=== PATIENT | female | born 1975 | race Caucasian/White ===

== ENCOUNTER 2021-07-14 19:48 | Inpatient (IN) | payer BC ==
[~2021-07-14] VITALS: Ht 160 cm; Wt 97.5 kg
[~2021-07-14 19:48] MED LIST: SYN50 PO
[2021-07-14 19:50] VITALS: BP_SYST 150
[2021-07-14 20:42] LABS: BILIRUBIN,URINE 2+ (NEGATIVE); CLARITY/URINE CLEAR (CLEAR); COLOR,URINE YELLOW (YELLOW); GLUCOSE,URINE NEGATIVE (NEGATIVE); KETONES,URINE NEGATIVE (NEGATIVE); LEUKOCYTE ESTERASE ,URINE NEGATIVE (NEGATIVE); NITRITE, URINE NEGATIVE (NEGATIVE); PROTEIN URINE NEGATIVE (NEGATIVE)
[2021-07-14 20:46] LABS: BLOOD, URINE TRACE (NEGATIVE)
[2021-07-14 20:48] LABS: ANION GAP 7 (5-15); CALCIUM 9.3 mg/dL (8.4-11.0); CHLORIDE 102 mmol/L (98-107); CREATININE 0.89 mg/dL (0.55-1.30); GLUCOSE 109 mg/dL (70-99); POTASSIUM 4.1 mmol/L (3.5-5.1); SODIUM SERUM 135 mmol/L (136-145); UREA NITROGEN, BLOOD 10 mg/dL (8-21)
[2021-07-14 20:49] LABS: GFR AFRICAN AMERICAN 89 mL/min (>90)
[2021-07-14 20:51] LABS: BASOPHILS # (AUTO) 0.1 K/uL (0.0-0.2); BASOPHILS % (AUTO) 0.5 % (0.0-2.0); EOSINOPHILS # (AUTO) 0.1 K/uL (0.0-0.4); EOSINOPHILS % (AUTO) 0.9 % (0.0-4.0); HEMATOCRIT 41.2 % (36-48); HEMOGLOBIN 13.9 g/dL (12.0-16.0); LYMPHOCYTES # (AUTO) 1.1 K/uL (1.0-5.5); LYMPHOCYTES % (AUTO) 9.2 % (20.5-51.5); MEAN CORPUSCULAR HEMOGLOBIN 31 pg (27-31); MEAN CORPUSCULAR HGB CONC 34 % (32-36); MEAN CORPUSCULAR VOLUME 91 fL (79.0-98.0); MONOCYTES # (AUTO) 0.8 K/uL (0.0-1.0); MONOCYTES % (AUTO) 6.7 % (1.7-9.3); NEUTROPHILS # (AUTO) 9.7 K/uL (1.8-7.7); NEUTROPHILS % (AUTO) 82.7 % (40.0-70.0); PLATELET COUNT (AUTO) 354 K/uL (130-430); RED BLOOD CELL COUNT(AUTO) 4.52 MIL/uL (4.2-6.2); RED CELL DISTRIBUTION WIDTH 13.2 % (9.0-15.0); WHITE BLOOD COUNT (AUTO) 11.7 K/uL (4.8-10.8)
[2021-07-14 20:53] LABS: C-REACTIVE PROTEIN QUANT < 0.2 mg/dL (0-0.5)
[2021-07-14 20:57] LABS: ALANINE AMINOTRANSFERASE 617 U/L (12-78); AMYLASE 648 U/L (0-100); ASPARTATE AMINOTRANSFERASE 591 U/L (10-37); TOTAL BILIRUBIN 3.5 mg/dL (0.0-1.0)
[2021-07-14 21:05] LABS: LIPASE 10836 U/L (73-393)
[2021-07-14 21:17] LABS: BACTERIA,URINE FEW /HPF (None Seen); WBC,URINE 0-3 /HPF (0-3)
[2021-07-14] MEDS ORDERED: KETOROLAC TROMETHAMINE 60 MG/2 ML VIAL IM ONE (21:30)
[2021-07-14] MEDS: NACL 0.9% 1,000 ML IV SCH (22:00)
[2021-07-14] MEDS: PIPERACILLIN/TAZO 3.375/DEX-IS 50 ML IV SCH (22:00)
[2021-07-14] MEDS ORDERED: MORPHINE 4 MG INJ. 4 MG/ML VIAL IVP ONE (22:15)
[2021-07-14] MEDS ORDERED: ONDANSETRON HCL 4 MG/2 ML VIAL IVP ONE (22:15)
[2021-07-14] MEDS ORDERED: PIPERACILLIN/TAZOBACTAM 3.375 GM/VIAL (ZOSYN) IV ONE (22:52)
[2021-07-15 00:40] VITALS: BP_SYST 134
[2021-07-15] MEDS ORDERED: PIPERACILLIN/TAZOBACTAM 3.375 GM/VIAL (ZOSYN) IV ONE (06:05)
[2021-07-15] MEDS: NACL 0.9% 1,000 ML IV SCH (06:23)
[2021-07-15] MEDS: PIPERACILLIN/TAZO 3.375/DEX-IS 50 ML IV SCH ×3 (06:23→22:18)
[2021-07-15 07:14] LABS: BASOPHILS % (AUTO) 0.2 % (0.0-2.0); EOSINOPHILS % (AUTO) 0.2 % (0.0-4.0); HEMATOCRIT 38.8 % (36-48); HEMOGLOBIN 13.1 g/dL (12.0-16.0); LYMPHOCYTES # (AUTO) 0.9 K/uL (1.0-5.5); LYMPHOCYTES % (AUTO) 10.4 % (20.5-51.5); MEAN CORPUSCULAR HEMOGLOBIN 31 pg (27-31); MEAN CORPUSCULAR HGB CONC 34 % (32-36); MEAN CORPUSCULAR VOLUME 92 fL (79.0-98.0); MONOCYTES # (AUTO) 0.5 K/uL (0.0-1.0); MONOCYTES % (AUTO) 5.4 % (1.7-9.3); NEUTROPHILS # (AUTO) 7.4 K/uL (1.8-7.7); NEUTROPHILS % (AUTO) 83.8 % (40.0-70.0); PLATELET COUNT (AUTO) 323 K/uL (130-430); RED BLOOD CELL COUNT(AUTO) 4.24 MIL/uL (4.2-6.2); RED CELL DISTRIBUTION WIDTH 13.1 % (9.0-15.0); WHITE BLOOD COUNT (AUTO) 8.9 K/uL (4.8-10.8)
[2021-07-15 08:00] VITALS: BP_SYST 130
[2021-07-15] MEDS: MORPHINE 4 MG INJ. 4 MG/ML VIAL IVP PRN ×5 (08:08→22:21)
[2021-07-15 08:57] LABS: ALBUMIN 3.6 g/dL (3.4-4.8); CREATININE 0.75 mg/dL (0.55-1.30); POTASSIUM 4.1 mmol/L (3.5-5.1); TOTAL BILIRUBIN 3.9 mg/dL (0.0-1.0)
[2021-07-15] MEDS: LR 1,000 ML IV SCH ×3 (10:53→22:18)
[2021-07-15 11:38] VITALS: BP_SYST 142
[2021-07-15 15:46] VITALS: BP_SYST 104
[2021-07-15 16:00] VITALS: BP_SYST 120
[2021-07-15 19:00] VITALS: BP_SYST 115
[2021-07-16] VITALS: BP_SYST 117
[2021-07-16] MEDS: LR 1,000 ML IV SCH ×4 (01:24→20:27)
[2021-07-16] MEDS: MORPHINE 4 MG INJ. 4 MG/ML VIAL IVP PRN ×4 (05:04→21:13)
[2021-07-16] MEDS: PIPERACILLIN/TAZO 3.375/DEX-IS 50 ML IV SCH ×3 (05:08→21:19)
[2021-07-16 06:54] LABS: BASOPHILS # (AUTO) 0.1 K/uL (0.0-0.2); BASOPHILS % (AUTO) 0.6 % (0.0-2.0); EOSINOPHILS # (AUTO) 0.1 K/uL (0.0-0.4); EOSINOPHILS % (AUTO) 0.7 % (0.0-4.0); HEMATOCRIT 36.3 % (36-48); HEMOGLOBIN 12.2 g/dL (12.0-16.0); LYMPHOCYTES # (AUTO) 0.9 K/uL (1.0-5.5); LYMPHOCYTES % (AUTO) 8.4 % (20.5-51.5); MEAN CORPUSCULAR HEMOGLOBIN 31 pg (27-31); MEAN CORPUSCULAR HGB CONC 34 % (32-36); MEAN CORPUSCULAR VOLUME 92 fL (79.0-98.0); MONOCYTES # (AUTO) 0.7 K/uL (0.0-1.0); MONOCYTES % (AUTO) 6.5 % (1.7-9.3); NEUTROPHILS # (AUTO) 9.4 K/uL (1.8-7.7); NEUTROPHILS % (AUTO) 83.8 % (40.0-70.0); PLATELET COUNT (AUTO) 298 K/uL (130-430); RED BLOOD CELL COUNT(AUTO) 3.97 MIL/uL (4.2-6.2); RED CELL DISTRIBUTION WIDTH 13.4 % (9.0-15.0); WHITE BLOOD COUNT (AUTO) 11.2 K/uL (4.8-10.8)
[2021-07-16 07:34] LABS: ALBUMIN 3.1 g/dL (3.4-4.8); CALCIUM 7.9 mg/dL (8.4-11.0); POTASSIUM 3.5 mmol/L (3.5-5.1)
[2021-07-16 08:00] VITALS: BP_SYST 112
[2021-07-16 08:10] LABS: CREATININE 0.65 mg/dL (0.55-1.30)
[2021-07-16 09:12] LABS: TOTAL BILIRUBIN 5.9 mg/dL (0.0-1.0)
[2021-07-16 12:00] VITALS: BP_SYST 115
[2021-07-16 16:00] VITALS: BP_SYST 118
[2021-07-16 20:00] VITALS: BP_SYST 126
[2021-07-17 00:16] VITALS: BP_SYST 106
[2021-07-17] MEDS: PIPERACILLIN/TAZO 3.375/DEX-IS 50 ML IV SCH ×3 (05:19→21:11)
[2021-07-17] MEDS: LR 1,000 ML IV SCH ×4 (05:20→21:58)
[2021-07-17 06:54] LABS: BASOPHILS # (AUTO) 0.1 K/uL (0.0-0.2); BASOPHILS % (AUTO) 0.5 % (0.0-2.0); EOSINOPHILS # (AUTO) 0.2 K/uL (0.0-0.4); EOSINOPHILS % (AUTO) 2.2 % (0.0-4.0); HEMATOCRIT 33.7 % (36-48); HEMOGLOBIN 11.4 g/dL (12.0-16.0); LYMPHOCYTES # (AUTO) 1.1 K/uL (1.0-5.5); LYMPHOCYTES % (AUTO) 10.2 % (20.5-51.5); MEAN CORPUSCULAR HEMOGLOBIN 31 pg (27-31); MEAN CORPUSCULAR HGB CONC 34 % (32-36); MEAN CORPUSCULAR VOLUME 91 fL (79.0-98.0); MONOCYTES # (AUTO) 0.9 K/uL (0.0-1.0); MONOCYTES % (AUTO) 8.2 % (1.7-9.3); NEUTROPHILS # (AUTO) 8.7 K/uL (1.8-7.7); NEUTROPHILS % (AUTO) 78.9 % (40.0-70.0); PLATELET COUNT (AUTO) 279 K/uL (130-430); RED CELL DISTRIBUTION WIDTH 13.2 % (9.0-15.0)
[2021-07-17] MEDS: MORPHINE 2 MG/ML INJ. SYRINGE IVP PRN (08:20)
[2021-07-17 08:51] LABS: ALBUMIN 2.8 g/dL (3.4-4.8); CALCIUM 8.6 mg/dL (8.4-11.0); CREATININE 0.56 mg/dL (0.55-1.30); POTASSIUM 3.2 mmol/L (3.5-5.1); TOTAL BILIRUBIN 1.3 mg/dL (0.0-1.0)
[2021-07-17 09:27] VITALS: BP_SYST 109
[2021-07-17] MEDS ORDERED: POTASSIUM CHLORIDE 20 MEQ TAB.PRT.SR PO ONE (11:45)
[2021-07-17 12:21] VITALS: BP_SYST 108
[2021-07-17 14:28] VITALS: BP_SYST 109
[2021-07-17 16:00] VITALS: BP_SYST 107
[2021-07-17 20:00] VITALS: BP_SYST 122
[2021-07-17] MEDS: MORPHINE 4 MG INJ. 4 MG/ML VIAL IVP PRN (20:22)
[2021-07-18 00:30] VITALS: BP_SYST 99
[2021-07-18] MEDS: PIPERACILLIN/TAZO 3.375/DEX-IS 50 ML IV SCH ×3 (04:55→22:33)
[2021-07-18] MEDS: LR 1,000 ML IV SCH (04:55)
[2021-07-18] MEDS: MORPHINE 4 MG INJ. 4 MG/ML VIAL IVP PRN (05:03)
[2021-07-18 07:52] LABS: BASOPHILS % (AUTO) 0.4 % (0.0-2.0); EOSINOPHILS # (AUTO) 0.4 K/uL (0.0-0.4); EOSINOPHILS % (AUTO) 4.1 % (0.0-4.0); HEMATOCRIT 33.2 % (36-48); HEMOGLOBIN 11.2 g/dL (12.0-16.0); LYMPHOCYTES # (AUTO) 1.3 K/uL (1.0-5.5); LYMPHOCYTES % (AUTO) 13.4 % (20.5-51.5); MEAN CORPUSCULAR HEMOGLOBIN 31 pg (27-31); MEAN CORPUSCULAR HGB CONC 34 % (32-36); MEAN CORPUSCULAR VOLUME 91 fL (79.0-98.0); MONOCYTES # (AUTO) 0.9 K/uL (0.0-1.0); MONOCYTES % (AUTO) 9.2 % (1.7-9.3); NEUTROPHILS # (AUTO) 7.3 K/uL (1.8-7.7); NEUTROPHILS % (AUTO) 72.9 % (40.0-70.0); PLATELET COUNT (AUTO) 302 K/uL (130-430); RED BLOOD CELL COUNT(AUTO) 3.63 MIL/uL (4.2-6.2)
[2021-07-18 09:14] LABS: CREATININE 0.63 mg/dL (0.55-1.30); POTASSIUM 3.5 mmol/L (3.5-5.1)
[2021-07-18 09:27] LABS: C-REACTIVE PROTEIN QUANT 14.4 mg/dL (0-0.5)
[2021-07-18] MEDS ORDERED: OXYCODONE/ACETAMINOPHEN 5-325 TABLET PO PRN (11:15)
[2021-07-18] MEDS ORDERED: ACETAMINOPHEN 325 MG TABLET PO PRN (11:15)
[2021-07-18] MEDS ORDERED: NALOXONE HCL 0.4 MG/ML AMP (NARCAN) IVP PRN (11:15)
[2021-07-18] MEDS ORDERED: HYDROcodone/ACETAMIN 5-325 MG TAB (NORCO/ VICODIN) PO PRN (11:15)
[2021-07-18 12:17] VITALS: BP_SYST 104
[2021-07-18 13:31] LABS: ERYTHROCYTE SEDIMENTATION RATE 60 MM/HR (0-20)
[2021-07-18 17:16] VITALS: BP_SYST 114
[2021-07-18 20:00] VITALS: BP_SYST 114
[2021-07-18] MEDS: MORPHINE 2 MG/ML INJ. SYRINGE IVP PRN (20:16)
[2021-07-19 00:10] VITALS: BP_SYST 117
[2021-07-19] MEDS: PIPERACILLIN/TAZO 3.375/DEX-IS 50 ML IV SCH (05:25)
[2021-07-19 07:50] LABS: BASOPHILS # (AUTO) 0.1 K/uL (0.0-0.2); BASOPHILS % (AUTO) 0.7 % (0.0-2.0); EOSINOPHILS # (AUTO) 0.4 K/uL (0.0-0.4); EOSINOPHILS % (AUTO) 4.5 % (0.0-4.0); HEMOGLOBIN 11.8 g/dL (12.0-16.0); LYMPHOCYTES # (AUTO) 1.2 K/uL (1.0-5.5); MEAN CORPUSCULAR HEMOGLOBIN 31 pg (27-31); MEAN CORPUSCULAR HGB CONC 34 % (32-36); MEAN CORPUSCULAR VOLUME 91 fL (79.0-98.0); MONOCYTES # (AUTO) 0.7 K/uL (0.0-1.0); MONOCYTES % (AUTO) 7.4 % (1.7-9.3); NEUTROPHILS # (AUTO) 7.1 K/uL (1.8-7.7); NEUTROPHILS % (AUTO) 74.4 % (40.0-70.0); PLATELET COUNT (AUTO) 341 K/uL (130-430); RED BLOOD CELL COUNT(AUTO) 3.85 MIL/uL (4.2-6.2); RED CELL DISTRIBUTION WIDTH 13.2 % (9.0-15.0); WHITE BLOOD COUNT (AUTO) 9.5 K/uL (4.8-10.8)
[2021-07-19 08:27] VITALS: BP_SYST 114
[2021-07-19 09:57] LABS: ERYTHROCYTE SEDIMENTATION RATE 77 MM/HR (0-20)
[2021-07-19 10:50] LABS: POTASSIUM 4.1 mmol/L (3.5-5.1)
[2021-07-19 10:51] LABS: ALBUMIN 3.1 g/dL (3.4-4.8); CALCIUM 9.1 mg/dL (8.4-11.0); CREATININE 0.64 mg/dL (0.55-1.30); TOTAL BILIRUBIN 0.7 mg/dL (0.0-1.0)
[2021-07-19] MEDS ORDERED: HYDR-3919 PO (10:52)
[2021-07-19 11:19] VITALS: BP_SYST 114
== END 2021-07-19 14:00 | disposition home health service (06) | DRG 439 ==
LOC: SED 19:48 → STU 21:55 → SMU 07-15 23:37
PROVIDERS: ADMIT Preventive Medicine Preventive Medicine/Occupational Environmental Medicine; ATTEND Preventive Medicine Preventive Medicine/Occupational Environmental Medicine
DX: K85.10 Biliary acute pancreatitis without necrosis or infection (principal); E44.0 Moderate protein-calorie malnutrition; E87.1 Hypo-osmolality and hyponatremia; R65.10 Systemic inflammatory response syndrome (SIRS) of non-infectious origin without acute organ dysfunction; D64.9 Anemia, unspecified; E03.9 Hypothyroidism, unspecified; E83.51 Hypocalcemia; E87.6 Hypokalemia; E66.9 Obesity, unspecified; G43.909 Migraine, unspecified, not intractable, without status migrainosus; R73.9 Hyperglycemia, unspecified; Z20.822 Contact with and (suspected) exposure to COVID-19; E88.09 Other disorders of plasma-protein metabolism, not elsewhere classified; Z90.710 Acquired absence of both cervix and uterus; Z88.0 Allergy status to penicillin; Z79.899 Other long term (current) drug therapy; Z68.38 Body mass index [BMI] 38.0-38.9, adult
CPT/HCPCS: 36415; 74181; 76376; 76705; 80048; 80053; 81000; 82150; 83690; 84478; 84484; 84703; 85025; 85651-TC; 86140; 96372; 96374; 96375; 99285; G0378; J1885; J2270; J2405; J2543

== ENCOUNTER 2021-07-26 10:00 | Outpatient (CLI) | payer BC ==
[~2021-07-26] VITALS: Ht 162.6 cm; Wt 95.3 kg
[~2021-07-26 10:00] MED LIST changes: +HYDR-3919 PO
[2021-07-29] MEDS ORDERED: CLINDAMYCIN 600 mg/50mL D5W 50 ML IV ONE (07:00)
== END 2021-07-26 11:00 | disposition home or self-care (01) ==
LOC: SLB 10:00 → EDSTATUS 07-29 10:15
PROVIDERS: ATTEND Colon & Rectal Surgery
DX: Z01.812 Encounter for preprocedural laboratory examination (principal); K85.10 Biliary acute pancreatitis without necrosis or infection; Z20.822 Contact with and (suspected) exposure to COVID-19
CPT/HCPCS: 36415; 87635; U0003; J3490